=== PATIENT | female | born 1965 | race Caucasian/White ===

== ENCOUNTER → 2018-06-11 10:52 | Outpatient (CLI) | payer BC, SELFPAY | PROVIDERS: Visit Provider Physician Assistant Surgical | DX: S90.31XA Contusion of right foot, initial encounter (principal) | CPT/HCPCS: 73630 ==

== ENCOUNTER 2020-08-13 10:17 | Outpatient (RCR) | payer BC, SELFPAY ==
[2020-03-07 11:04] VITALS: BMI 27.2
== END 2020-08-18 23:59 ==
LOC: EMPH 10:17
PROVIDERS: Visit Provider Family Medicine Geriatric Medicine
DX: Z03.818 Encounter for observation for suspected exposure to other biological agents ruled out (principal)
CPT/HCPCS: 87426

== ENCOUNTER → 2021-07-23 07:12 | Outpatient (CLI) | payer BC, SELFPAY ==
[2021-07-23 08:14] LABS: Cholesterol 187 mg/dL (200); High Density Lipoprotein 63 mg/dL; Triglycerides 100 mg/dL; Very Low Density Lipoprotein 20 mg/dL (5-40)
== END ==
PROVIDERS: PCP Internal Medicine; Referring Provider Internal Medicine; Visit Provider Internal Medicine
DX: Z13.220 Encounter for screening for lipoid disorders (principal)
CPT/HCPCS: 36415; 80061

== ENCOUNTER → 2022-10-30 | Outpatient (CLI) | payer BC, SELFPAY ==
[2022-10-30 07:49] LABS: Hematocrit 42.8 % (37-47); Hemoglobin 13.8 g/dL (12.0-15.0); Mean Corp Hgb Conc 32.2 g/dL (32-36); Mean Corpuscular Hgb 30.1 pg (27.0-32.0); Mean Corpuscular Volume 93.4 fL (81-99); Mean Platelet Vol. 10.1 fl (6.2-12.0); Platelet Count 292 K/mm3 (150-450); RBC Distribution Width CV 11.9 % (11.6-14.6); RBC Distribution Width SD 41.2 fl (35.1-43.9); Red Blood Count 4.58 M/mm3 (4.2-5.4)
[2022-10-30 08:26] LABS: AST(SGOT) 21 U/L (15-37); Alanine Aminotransfer ALT/SGPT 23 U/L (13-56); Albumin, Serum 3.5 g/dL (3.2-5.0); Alkaline Phosphatase 75 U/L (45-117); Anion Gap 7 (5-15); BUN 20 mg/dL (7-18); BUN/Creat Ratio 21.9 RATIO (10-20); Bilirubin, Direct 0.12 mg/dL (0.00-0.30); Chloride 101 mmol/L (98-107); Cholesterol 226 mg/dL (200); Creatinine, Serum 0.91 mg/dL (0.55-1.02); EST Glomerular Filtration Rate 68 mL/min (>60); Est Glom Filt Rate - Afr Amer 82 mL/min (>60); Globulin 4.3 g/dL (2.2-4.2); Glucose 90 mg/dL (74-106); High Density Lipoprotein 69 mg/dL; Potassium 4.1 mmol/L (3.5-5.1); Protein, Total 7.8 g/dL (6.4-8.2); Sodium Level 139 mmol/L (136-145); Thyroid Stim Hormone (TSH) 2.78 uIU/mL (0.358-3.74); Triglycerides 74 mg/dL; Very Low Density Lipoprotein 15 mg/dL (5-40)
[2022-10-30 08:49] LABS: Vitamin D,25 Hydroxy 39.1 ng/mL
== END | disposition home or self-care (01) ==
LOC: LAB 05:58
PROVIDERS: PCP Internal Medicine; Referring Provider Internal Medicine; Visit Provider Internal Medicine
DX: Z13.220 Encounter for screening for lipoid disorders (principal); R03.0 Elevated blood-pressure reading, without diagnosis of hypertension; M85.80 Other specified disorders of bone density and structure, unspecified site
CPT/HCPCS: 36415; 80048; 80061; 80076; 82306; 84443; 85027

== ENCOUNTER → 2023-08-31 | Outpatient (CLI) | payer BC, SELFPAY ==
[2023-08-31 08:01] LABS: CRP < 2.90 mg/L (0.0-3.0); Cholesterol 227 mg/dL (200); High Density Lipoprotein 58 mg/dL; Rheumatoid Factor < 10.0 IU/mL (<15); Triglycerides 92 mg/dL; Very Low Density Lipoprotein 18 mg/dL (5-40)
[2023-08-31 08:05] LABS: Erythrocyte Sedimentation Rate 9 mm/hr (0-30)
== END | disposition home or self-care (01) ==
LOC: LAB 05:46
PROVIDERS: PCP Internal Medicine; Referring Provider Internal Medicine; Visit Provider Internal Medicine
DX: M25.50 Pain in unspecified joint (principal); E78.5 Hyperlipidemia, unspecified
CPT/HCPCS: 36415; 80061; 85652; 86140; 86431

== ENCOUNTER 2023-09-17 06:54 | Day surgery (SDC) | payer BC, SELFPAY ==
--- NOTE | 2023-09-17 07:03 | PCM.HP.STD ---
HPI - General General Date of Admission: 09/17/23 Date of Service: 09/17/23 Chief Complaint: Screening colonoscopy HPI Narrative DESEAN PASTOR, is a 58 F who presents today for screening colonoscopy. She is not having any abdominal pain. She denies any cramping. She does not have any nausea, vomiting or diarrhea. She had a colonoscopy approximately 10 years ago. The colonoscopy was normal she takes only supplements on a daily basis. She does not take any prescription medicines on daily basis. Overall she is in very good health. [facility] Medical History (Updated 09/15/23 @ 15:52 by Mary Grace Ferrell) Alcohol use Cardiology follow-up encounter Family hx of colon cancer History of IBS History of stress test Non-smoker Post-menopausal Situational anxiety Wears glasses Home Medications glucosamine HCl 1,500 mg tablet 1,500 mg PO DAILY 06/11/18 [History Last Taken Unknown] zolpidem 10 mg tablet (Ambien) 10 mg PO QHS PRN sleep 06/11/18 [History Last Taken Unknown] calcium carbonate 500 mg calcium (1,250 mg) tablet 500 mg PO DAILY 07/27/23 [History Last Taken Unknown] lorazepam 1 mg tablet (Ativan) 1 mg PO DAILY PRN anxiety 07/27/23 [History Last Taken Unknown] magnesium gluconate 27.5 mg magnesium (500 mg) tablet 27.5 mg PO DAILY 07/27/23 [History Last Taken Unknown] omega-3 fatty acids-fish oil 360 mg-1,200 mg capsule (Fish Oil) 1 cap PO DAILY 07/27/23 [History Last Taken Unknown] Allergy/AdvReac Type Severity Reaction Status Date / Time No Known Allergies Allergy Verified 09/15/23 15:45 Family History (Updated 07/27/23 @ 12:28 by Ana Maria Alcantara) Grandmother Colon cancer Other Breast cancer Surgical History (Updated 09/15/23 @ 15:51 by Mary Grace Ferrell) Hx of colonoscopy Hx of dilation and curettage Social History (Updated 07/27/23 @ 12:29 by Ana Maria Alcantara) current occupational status: employed current occupation: [employer] Smoking Status: Never smoker alcohol intake: current Alcohol type: beer ROS Review of Systems ROS Unobtainable: other Constitutional Constitutional: Denies fatigue, fever(s), poor appetite, weight gain or weight loss ENT HEENT: Denies mouth lesions Cardiovascular Cardiovascular: Denies abdominal bloating, abdominal edema or abdominal pain Respiratory/Chest Respiratory/Chest: Denies change in mental status, change in phlegm color, chest congestion or chest tightness Gastrointestinal Gastrointestinal: Denies belching, bloating, change in bowel habits, change in stool character, chewing difficulty, coffee ground emesis, constipation, cramping, diarrhea, dyspepsia, dysphagia, early satiety, excessive flatus, fecal incontinence, heartburn, hematemesis, hematochezia, hemorrhoids, loose stools, melena, nausea, odynophagia, rectal bleeding, tenesmus, vomiting or weight changes Genitourinary Genitourinary: Denies abdominal discomfort, burning urination or itching Musculoskeletal Musculoskeletal: Reports as per HPI; Denies muscle weakness or myalgias Integumentary Integumentary: Denies jaundice Neurologic Neurologic: Denies lack of coordination or weakness Psychiatric Psychiatric: Denies confusion, depression, memory loss, mood swings, paranoia or suicidal ideation Endocrine Endocrinology: Denies systems reviewed and no addt'l complaints, except as documented Hematologic/Lymphatic Hematologic/Lymphatic: Denies anemia, easy bleeding, easy bruising or lymphadenopathy Allergic/Immunologic Allergic/Immunologic: Denies systems reviewed and no addt'l complaints, except as documented Physical Exam Const alert General Appearance: cooperative Orientation / Consciousness: oriented to person HEENT hearing grossly normal bilaterally Head and Scalp: normal to inspection Face and Sinus: face symmetric Nose: external nose normal Mouth: oral and palatal mucosa normal Eyes conjunctivae normal General Eye: normal appearance of both eyes Neck full ROM General: normal visual inspection Lymph Lymphatic: no lymphadenopathy noted Chest inspection of chest normal and palpation of chest normal Chest: symmetrical chest wall rise Resp normal respiratory effort Effort and Inspection: able to speak in complete sentences Cardio regular rate GI non-distended Percussion: normal to percussion Rectal Exam: deferred Neuro Speech: speech normal Gait (Neuro): normal gait Assessment & Plan Assessment/Plan (1) Encounter for screening for malignant neoplasm of colon: PLAN: 58-year-old comes in for colonoscopy. She was explained alternatives, risk, benefits not withstanding bleeding, infection, sepsis, perforation, need for emergent urgent . She have an ASA of 3.
[2023-09-17 07:23] VITALS: BP 137/93; PULSE 71; RESP 16; TEMP 36; O2SAT 100; BMI 28.2
[2023-09-17] MEDS: Lactated Ringers 1,000 ML 15 ML IV (07:27)
[2023-09-17 08:39] VITALS: BP 108/53; BP 137/93; PULSE 68; RESP 16; TEMP 36.8; O2SAT 98
--- NOTE | 2023-09-17 08:43 | OP.COLON_ITS ---
Patient Name: Katt Romero Procedure Date: 09/17/2023 8:10 AM Date of : 1965 Age: 58 Procedure: Colonoscopy Indications: Screening for colorectal malignant neoplasm Providers: Sudhir Aguilar DO Medicines: Monitored Anesthesia Care Patient Profile: This is a 58 year old female. Refer to note in patient chart for documentation of history and physical. Last Colonoscopy: 10 years ago. Complications: No immediate complications. Procedure: Pre-Anesthesia Assessment: - Prior to the procedure, a History and Physical was performed, and patient medications and allergies were reviewed. The patient is competent. The risks and benefits of the procedure and the sedation options and risks were discussed with the patient. All questions were answered and informed consent was obtained. Patient identification and proposed procedure were verified by the physician in the pre-procedure area. Mental Status Examination: alert and oriented. Airway Examination: normal oropharyngeal airway and neck mobility. Respiratory Examination: clear to auscultation. CV Examination: normal. Prophylactic Antibiotics: The patient does not require prophylactic antibiotics. Prior Anticoagulants: The patient has taken no anticoagulant or antiplatelet agents. ASA Grade Assessment: II - A patient with mild systemic disease. After reviewing the risks and benefits, the patient was deemed in satisfactory condition to undergo the procedure. The anesthesia plan was to use monitored anesthesia care (MAC). Immediately prior to administration of medications, the patient was re-assessed for adequacy to receive sedatives. The heart rate, respiratory rate, oxygen saturations, blood pressure, adequacy of pulmonary ventilation, and response to care were monitored throughout the procedure. The physical status of the patient was re-assessed after the procedure. After I obtained informed consent, the scope was passed under direct vision. Throughout the procedure, the patient's blood pressure, pulse, and oxygen saturations were monitored continuously. The was introduced through the anus and advanced to the cecum, identified by appendiceal orifice and ileocecal valve. The colonoscopy was performed without difficulty. The patient tolerated the procedure well. The quality of the bowel preparation was adequate. The ileocecal valve, appendiceal orifice, and rectum were photographed. Scope In: 8:18:31 AM Scope Withdrawal Time 0 hours 8 minutes 40 seconds Scope Out: 8:33:40 AM Total Procedure Duration Time 0 hours 15 minutes 9 seconds Findings: The perianal and digital rectal examinations were normal. A few small and large-mouthed diverticula were found in the recto-sigmoid colon and sigmoid colon. The exam was otherwise without abnormality on direct and retroflexion views. Impression: - Diverticulosis in the recto-sigmoid colon and in the sigmoid colon. - The examination was otherwise normal on direct and retroflexion views. - No specimens collected. Recommendation: - Discharge patient to home. - Resume previous diet. - Continue present medications. - Repeat colonoscopy in 10 years for screening purposes. Procedure Code(s): --- Professional --- G0121, Colorectal cancer screening; colonoscopy on individual not meeting criteria for high risk CPT copyright 2021 [employer]. All rights reserved. The codes documented in this report are preliminary and upon certified professional coder review may be revised to meet current compliance requirements. Sudhir Aguilar DO 09/17/2023 8:42:49 AM This report has been signed electronically. Number of Addenda: 0 Note Initiated On: 09/17/2023 8:10 AM
--- NOTE | 2023-09-17 08:43 | OP.CCLET_ITS ---
09/17/2023 Penny Mcghee Md Re : Colonoscopy procedure for Katt Romero Dear Dr. Mcghee This procedure was performed on August. My impressions and recommendations are as follows: Impressions : - Diverticulosis in the recto-sigmoid colon and in the sigmoid colon. - The examination was otherwise normal on direct and retroflexion views. - No specimens collected. Recommendations : - Discharge patient to home. - Resume previous diet. - Continue present medications. - Repeat colonoscopy in 10 years for screening purposes. My findings are described in the full procedure note, which is enclosed. If I can be of further assistance, please feel free to contact me at . Sincerely, Sudhir Aguilar, 09/17/2023 8:42:49 AM This report has been signed electronically.
[2023-09-17 08:45] VITALS: BP 104/62; BP 137/93; PULSE 58; RESP 16; O2SAT 100
[2023-09-17 08:50] VITALS: BP 137/93; BP 91/71; PULSE 57; RESP 16; O2SAT 99
[2023-09-17 08:55] VITALS: BP 118/73; BP 137/93; PULSE 64; RESP 16; TEMP 36.4; O2SAT 98
[2023-09-17 09:11] VITALS: BP 137/93
== END 2023-09-17 09:13 | disposition home or self-care (01) ==
LOC: EN 06:54 → AC 06:57
PROVIDERS: PCP Internal Medicine; Referring Provider Internal Medicine; Visit Provider Internal Medicine Gastroenterology
PROC: 0DJD8ZZ Inspection of Lower Intestinal Tract, Via Natural or Artificial Opening Endoscopic (ICD-10-PCS; CPT 45378; principal; 2023-09-17 07:55)
DX: Z12.11 Encounter for screening for malignant neoplasm of colon (principal); K57.30 Diverticulosis of large intestine without perforation or abscess without bleeding; Z80.0 Family history of malignant neoplasm of digestive organs
CPT/HCPCS: G0121; J7120; J2405

== ENCOUNTER → 2023-09-24 | Outpatient (CLI) | payer BC, SELFPAY ==
--- NOTE | 2023-09-24 08:28 | BD_ITS ---
STUDY: DUAL ENERGY X-RAY ABSORPTIOMETRY / DXA REASON FOR EXAM: Female, 58 years old. M85.89 TECHNIQUE: Bone Mineral Density (BMD) measurements of lumbar spine and bilateral hips were obtained. COMPARISON: None. FINDINGS: Lumbar Spine (L1-L4): g/cm2 (0.929) / T-score (-1.1) / Z-score (0.1) Findings are suggestive of osteopenia with a low fracture risk. Left Femur Total: g/cm2 (0.829) / T-score (-0.9) / Z-score (-0.2) Left Femoral Neck: g/cm2 (0.646) / T-score (-1.8) / Z-score (-0.7) Right Femur Total: g/cm2 (0.831) / T-score (-0.9) / Z-score (-0.2) Right Femoral Neck: g/cm2 (0.626) / T-score (-2.0) / Z-score (-0.9) BD/Dexa Bone Density Study IMPRESSION: The patient is considered osteopenic as outlined below according to World [employer] Organization (WHO) criteria with a moderate fracture risk. Reference Information: The T-score is the number of standard deviations above or below the standard which is normal for young adults at their peak bone mineral density. The World Health Organization (WHO) interprets the T-scores as follows: Above -1 Normal bone density Between -1 and -2.5 Osteopenia Equal to / or below -2.5 Osteoporosis As a practical clinical guideline, osteopenia may be graded as follows: Mild -1 through -1.5 Moderate -1.6 through -2.0 Severe -2.1 through -2.4 The Z-score is the number of standard deviations above or below age-matched controls. A Z-score of less than -1.5 would be considered abnormal. References: 1. NIH Osteoporosis and Related Bone Diseases www osteo.org 2. International Society for Clinical Densitometry www iscd.org 3. National Osteoporosis Foundation www nof.org Electronically Signed: Kemar Bueno MD at 9:48 EST ,
--- NOTE | 2023-09-24 08:45 | RAD_ITS ---
STUDY: X-RAY - RIGHT FOOT CLINICAL: Female, 58 years old. Pain. TECHNIQUE: 3 weightbearing view(s) of the foot. COMPARISON: June 11, 2018 FINDINGS: Mild arthrosis of the tibiotalar joint, unchanged. Mild arthrosis of the subtalar joint unchanged. Stable superior and inferior calcaneal spurs. Mild arthrosis of the midfoot, the TMT joints and the MTP and IP joints, unaltered. Normal soft tissues. RAD/Foot min 3 Views IMPRESSION: Stable osteoarthritic changes and calcaneal spurs. No acute abnormality or erosive changes. Electronically Signed: Jamin Paredes MD at 9:43 EST ,
== END | disposition home or self-care (01) ==
LOC: OPBD 08:43 → RAD 08:44
PROVIDERS: PCP Internal Medicine; Referring Provider Podiatrist; Visit Provider Podiatrist
DX: M85.89 Other specified disorders of bone density and structure, multiple sites (principal); M79.671 Pain in right foot
CPT/HCPCS: 73630; 77080

== ENCOUNTER → 2025-08-18 | Outpatient (CLI) | payer BC, SELFPAY ==
[2025-08-18 09:06] LABS: Hematocrit 41.9 % (37-47); Hemoglobin 13.5 g/dL (12.0-15.0); Mean Corp Hgb Conc 32.2 g/dL (32-36); Mean Corpuscular Volume 92.3 fL (81-99); Mean Platelet Vol. 10.0 fl (6.2-12.0); Platelet Count 257 K/mm3 (150-450); RBC Distribution Width CV 12.1 % (11.6-14.6); RBC Distribution Width SD 41.3 fl (35.1-43.9); Red Blood Count 4.54 M/mm3 (4.2-5.4); White Blood Count 5.6 K/mm3 (4.4-11.0)
[2025-08-18 09:50] LABS: AST(SGOT) 26 U/L (<=31); Alanine Aminotransfer ALT/SGPT 16 U/L (<=34); Albumin, Serum 3.9 g/dL (3.5-5.0); Alkaline Phosphatase 76 U/L (35-104); Anion Gap 6 (5-15); BUN 14 mg/dL (4-19); BUN/Creat Ratio 15.8 RATIO (10-20); Calcium,Total 9.5 mg/dL (7.6-11.0); Carbon Dioxide 28.8 mmol/L (21.0-32.0); Chloride 104 mmol/L (98-108); Cholesterol 237 mg/dL (<=200); Globulin 3.6 g/dL (2.2-4.2); Glucose 97 mg/dL (70-99); Low Density Lipoprotein Calc. 144 mg/dL; Potassium 4.4 mmol/L (3.3-5.1); Triglycerides 103 mg/dL; Very Low Density Lipoprotein 21 mg/dL (5-40); Vitamin D,25 Hydroxy 52.0 ng/mL (30-100); cholesterol:hdl ratio screen 3.14
== END | disposition home or self-care (01) ==
PROVIDERS: PCP Family Medicine; Referring Provider Family Medicine; Visit Provider Family Medicine
DX: R03.0 Elevated blood-pressure reading, without diagnosis of hypertension (principal); I10 Essential (primary) hypertension; I49.3 Ventricular premature depolarization; G57.01 Lesion of sciatic nerve, right lower limb
CPT/HCPCS: 36415; 80053; 80061; 82306; 84439; 84443; 85027